=== PATIENT | male | born 2000 | race Caucasian/White ===

== ENCOUNTER 2022-11-09 16:00 | Emergency (ER) | payer OTHER ==
[~2022-11-09] VITALS: Ht 175.3 cm; Wt 86.7 kg
[2022-11-09 18:07] VITALS: BP 135/95
[2022-11-09] MEDS ORDERED: IBUPROFEN 400MG TAB PO ONE (18:25)
[2022-11-09] MEDS ORDERED: AUGM500T34 PO (19:43)
[2022-11-09] MEDS ORDERED: AUGMENTIN 875 MG TAB PO ONE (19:45)
== END 2022-11-09 20:19 | disposition home or self-care (01) ==
LOC: M ED 18:43
DX: J02.0 Streptococcal pharyngitis (principal); Z87.891 Personal history of nicotine dependence

== ENCOUNTER 2023-02-05 19:49 | Emergency (ER) | payer OTHER ==
[~2023-02-05] VITALS: Ht 180.3 cm; Wt 89.0 kg
[~2023-02-05 19:49] MED LIST: AUGM500T34 PO
[2023-02-05 20:17] VITALS: BP 136/88
[2023-02-05 20:55] LABS: HEMATOCRIT 41.3 % (42.0-52.0); HEMOGLOBIN 14.7 g/dl (13.5-17.5); MEAN CORPUSCULAR HEMOGLOBIN 31.7 pg (27.0-33.0); MEAN CORPUSCULAR HGB CONC 35.6 g/dl (32.0-36.5); PLATELET COUNT, AUTOMATED 210 10^3/uL (150-450); RED BLOOD COUNT 4.64 10^6/uL (4.30-6.10); WHITE BLOOD COUNT 7.5 10^3/uL (4.0-10.0)
[2023-02-05 21:28] LABS: ETHYL ALCOHOL (ETHANOL) 0.003 % (0.000-0.010)
[2023-02-05 21:29] LABS: ACETAMINOPHEN LEVEL < 2.0 UG/ML (10.0-20.0)
[2023-02-05 21:30] LABS: ALBUMIN 4.6 G/DL (3.2-5.2); ALKALINE PHOSPHATASE 74 U/L (46-116); ALT/SGPT 37 U/L (7.0-40); AST/SGOT 31 U/L (<34); BILIRUBIN,DIRECT 0.7 MG/DL (<0.4); BILIRUBIN,TOTAL 1.7 MG/DL (0.3-1.2); BLOOD UREA NITROGEN 15 MG/DL (9-23); CALCIUM LEVEL 9.5 MG/DL (8.5-10.1); CARBON DIOXIDE LEVEL 26 MMOL/L (20-31); CHLORIDE LEVEL 103 MMOL/L (98-107); CREATININE FOR GFR 0.77 MG/DL (0.70-1.30); GLOMERULAR FILTRATION RATE > 60.0 (>60); GLUCOSE, FASTING 91 MG/DL (60-100); POTASSIUM SERUM 3.9 MMOL/L (3.5-5.1); SALICYLATE LEVEL < 3.0 MG/DL (<30); SODIUM LEVEL 139 MMOL/L (136-145); TOTAL PROTEIN 7.8 G/DL (5.7-8.2)
[2023-02-05 21:32] LABS: THYROID STIMULATING HORMONE 1.214 uIU/ML (0.55-4.78)
[2023-02-05 23:24] LABS: COCAINE METABOLITE URINE NEGATIVE (NEGATIVE); METHADONE URINE NEGATIVE (NEGATIVE)
[2023-02-05 23:25] LABS: AMPHETAMINES LEVEL URINE NEGATIVE (NEGATIVE); BARBITURATES URINE NEGATIVE (NEGATIVE); BENZODIAZEPINES URINE NEGATIVE (NEGATIVE); CANNABINOIDS URINE NEGATIVE (NEGATIVE); OPIATES URINE NEGATIVE (NEGATIVE); PHENCYCLIDINE URINE NEGATIVE (NEGATIVE)
[2023-02-05] MEDS ORDERED: HOME MED LIST COMPLETE! XX SCH (23:35)
== END 2023-02-06 01:48 | disposition home or self-care (01) ==
LOC: EDBD 19:49 → M ED 19:49
DX: F43.9 Reaction to severe stress, unspecified (principal); F17.200 Nicotine dependence, unspecified, uncomplicated

== ENCOUNTER 2023-06-11 08:32 | Emergency (ER) | payer OTHER ==
[~2023-06-11] VITALS: Ht 180.3 cm; Wt 86.3 kg
[2023-06-11] MEDS ORDERED: MORPHINE 10 MG/ML 1ML VIAL IM ONE (09:45)
[2023-06-11] MEDS ORDERED: ONDANSETRON 4MG ORAL DISINTEGRATING TAB PO ONE (09:50)
[2023-06-11] MEDS ORDERED: METOCLOPRAMIDE INJ 10MG/2ML VIAL IV ONE (12:25)
[2023-06-11] MEDS ORDERED: ACETAMINOPHEN 1000MG 100ML IV BAG IV ONE (12:25)
[2023-06-11] MEDS ORDERED: KETOROLAC 30 MG/ML 1ML VIAL IV ONE (14:25)
[2023-06-11] MEDS ORDERED: REGL10TA6 PO (14:25)
[2023-06-11 14:37] VITALS: BP 120/66; TEMP 98.8; O2SAT 98
== END 2023-06-11 14:43 | disposition home or self-care (01) ==
LOC: M ED 08:32
DX: S06.0X0A Concussion without loss of consciousness, initial encounter (principal); W20.8XXA Other cause of strike by thrown, projected or falling object, initial encounter; Z79.899 Other long term (current) drug therapy; Y99.1 Military activity
CPT/HCPCS: 70450; 72125; 72128; 96372; 96374; 96375; 99284; J0131; J1885; J2765

== ENCOUNTER → 2024-09-30 | Outpatient (REF) ==
[~2024-09-30] MED LIST changes: +REGL10TA6 PO
== END ==
LOC: M PLAIMG 09:15
PROVIDERS: ATTEND Internal Medicine
DX: R52 Pain, unspecified (principal)